=== PATIENT | female | born 1985 | race African-American/Black ===

== ENCOUNTER 2017-05-03 19:39 | Inpatient (IN) | payer BC ==
[2017-05-03 20:17] LABS: BASOPHILS 0.1 % (0-2); EOSINOPHILS 3.1 % (0-7); HEMATOCRIT 26.1 % (36.0-48.0); IMMATURE GRANULOCYTES 0.2 % (0-5); LYMPHOCYTES 26.9 % (15-50); MCHC 28.4 g/dL (31.0-37.0); MCV 60.6 fL (80.0-100.0); MEAN PLATELET VOLUME 8.8 fL (7.4-10.4); MONOCYTES 6.8 % (2-11); NEUTROPHILS 62.9 % (40-80); PLATELET COUNT 365 10x3/uL (130-400); RBC 4.31 10x6/uL (4.00-5.40); RDW 18.9 % (11.5-14.5)
[2017-05-03 20:19] LABS: MCH 17.2 pg (26.0-34.0)
[2017-05-03 20:21] LABS: HEMOGLOBIN 7.4 g/dL (12-16)
[2017-05-03 20:30] LABS: HCG SERUM NEGATIVE (NEGATIVE)
[2017-05-03 21:03] LABS: APTT 22.8 SECONDS (22.8-39.4); INR 1.05 (0.85-1.17); PROTIME 13.5 SECONDS (11.6-15.0)
[2017-05-03 21:23] LABS: ALKALINE PHOSPHATASE 75 U/L (46-116); ALT (SGPT) 29 U/L (10-68); BILIRUBIN - TOTAL 0.19 mg/dL (0.2-1.3); CALC OSMOLALITY 280 mosm/kg (275-300); CALCIUM 8.4 mg/dL (8.5-10.1); CARBON DIOXIDE 22.7 mmol/L (21.0-32.0); CHLORIDE - SERUM 106 mmol/L (98-107); CREATININE - SERUM 0.9 mg/dL (0.6-1.3); GLUCOSE 178 mg/dL (74-106); POTASSIUM - SERUM 4.1 mmol/L (3.5-5.1); PROTEIN - SERUM 7.4 g/dL (6.4-8.2); SODIUM 139 mmol/L (136-145); UREA NITROGEN 10 mg/dL (7-18); eGFR NON AFRICAN AMERICAN 78 mL/min (90-120)
[2017-05-03 23:30] VITALS: BP 124/59
[2017-05-04] VITALS (14 sets, daily range): BP systolic 101–137; BP diastolic 53–70
--- NOTE | 2017-05-04 00:30 | NUR ---
32 y/o non female rcvd from ER via w/c. Pt is being placed in 1273 for overnight observation and PRBC transfusion. Report rcvd from ER staff. Pt voided upon arrival in room. Reports pain only when moving or sitting. States pain is r/t cramping. Ambulated from bathroom to bed. Pt into bed in semi fowlers position. Has first unit PRBCs infusing @ 200ml/ hr to L AC. Saline bag is also hanging on Y blood tubing. Pt has scant vaginal bleeding. Placed yudi pad to pts yudi area. VS obtained. Assessment performed. Pt oriented to room and call system. Bed low. SR upx2. C/L in reach. Has a family friend in room. Dr. London present on unit and orders for pts care to be placed per .
[2017-05-04] MEDS ORDERED: PROVENTIL2 MG PO (00:54)
--- NOTE | 2017-05-04 01:07 | NUR ---
SOCIAL WORK THERAPIST NOTIFIED OF NEED FOR PREMARIN 25MG IV.
--- NOTE | 2017-05-04 01:30 | NUR ---
FIRST UNIT PRBCs COMPLETE. IV FLUSHING WITH NS @ 200ML/HR. PT RESTING.
--- NOTE | 2017-05-04 01:53 | NUR ---
Pt requesting pain medication for cramping. Rating pain 8/10. PRN pain medication administered as ordered. See EMAR.
--- NOTE | 2017-05-04 02:00 | NUR ---
Still awaiting premarin from dry house attendant.
--- NOTE | 2017-05-04 03:05 | NUR ---
IV tubing changed. Blood bag disposed in biohazard bag.
--- NOTE | 2017-05-04 03:07 | NUR ---
PRBC transfusion started @ 40ml/hr. Will remain with pt for next 15 minutes.
--- NOTE | 2017-05-04 03:07 | NUR ---
Second unit PRBCs started. Verified with Analisa Sweeney RN.
--- NOTE | 2017-05-04 03:23 | NUR ---
Pt tolerating transfusion. Rate increased to 150ml/hr.
--- NOTE | 2017-05-04 04:00 | NUR ---
Scant vag bleeding noted with no clots present.
--- NOTE | 2017-05-04 04:15 | NUR ---
Pt resting with eyes closed. C/L in reach. Bed low. SR up x2.
--- NOTE | 2017-05-04 05:40 | NUR ---
Pt request prn pain med. See EMAR for medical technologist chemistry.
--- NOTE | 2017-05-04 05:45 | NUR ---
Second unit PRBCs complete. IV tubing changed to primary straight tubing and IV flushed with NS. IV fluids infusing @ 150mlhr.
--- NOTE | 2017-05-04 06:00 | NUR ---
NS decreased to 125ml/hr.
--- NOTE | 2017-05-04 06:45 | NUR ---
Pt up to bathroom to void. No bleeding noted to yudi pad.
--- NOTE | 2017-05-04 06:52 | NUR ---
IV pump will not infuse. Saying occluded. IV pump turned off.
[2017-05-04 07:11] LABS: BASOPHILS 0.1 % (0-2); EOSINOPHILS 2.6 % (0-7); HEMATOCRIT 28.6 % (36.0-48.0); HEMOGLOBIN 8.6 g/dL (12-16); IMMATURE GRANULOCYTES 0.1 % (0-5); LYMPHOCYTES 17.9 % (15-50); MCHC 30.1 g/dL (31.0-37.0); MEAN PLATELET VOLUME 8.7 fL (7.4-10.4); MONOCYTES 6.2 % (2-11); NEUTROPHILS 73.1 % (40-80); RBC 4.46 10x6/uL (4.00-5.40); RDW 23.1 % (11.5-14.5); WBC 9.6 10x3/uL (4.8-10.8)
--- NOTE | 2017-05-04 07:14 | NUR ---
DR MALCOLM VISITED PT. ANTICIPATE DC HOME. LAB RESULTS PENDING.
[2017-05-04 07:18] LABS: MCH 19.3 pg (26.0-34.0); MCV 64.1 fL (80.0-100.0); PLATELET COUNT 284 10x3/uL (130-400)
[2017-05-04 07:23] LABS: CALC OSMOLALITY 277 mosm/kg (275-300); CALCIUM 8.4 mg/dL (8.5-10.1); CARBON DIOXIDE 24.4 mmol/L (21.0-32.0); CHLORIDE - SERUM 106 mmol/L (98-107); CREATININE - SERUM 0.8 mg/dL (0.6-1.3); GLUCOSE 140 mg/dL (74-106); POTASSIUM - SERUM 3.9 mmol/L (3.5-5.1); SODIUM 139 mmol/L (136-145); UREA NITROGEN 8 mg/dL (7-18); eGFR NON AFRICAN AMERICAN 89 mL/min (90-120)
--- NOTE | 2017-05-04 07:33 | NUR ---
LAYING IN BED SLEEPING, AROUSED FROM SLEEP TO INFORM OF DC PLAN. DROWSY. IV NOTED LEFT ANTECUBITAL, NS SOLUTION NOT INFUSING SECONDARY TO ALARIS PUMP OFF AT THIS TIME. RECEIVED BLOOD TRANSFUSIONS DURING THE NIGHT. ORDERS RECEIVED FOR DC HOME TODAY. REGULAR DIET ORDER. WILL DC HOME AFTER BREAKFAST. SCD'S IN PLACE. SIDE RAILS UP X 2, CALL LIGHT IN REACH. VISITORS X 2 AT BEDSIDE.
--- NOTE | 2017-05-04 08:57 | NUR ---
DC TO CAR VIA WHEELCHAIR AFTER DISCUSSING DC INSTRUCTIONS. VERBAL AND WRITTEN INFORMATION GIVEN ON VAGINAL BLEEDING. DISCUSSED DANGER SIGNS, DVT PREVENTION, IMPORTANCE OF FREQUENT AMBULATION ON TRIP BACK HOME TO [place]. TO MAKE APPOINTMENT WITH PCM WHEN HOME. TO NEAREST ER IF FURTHER EPISODE OF INCREASED VAGINAL BLEEDING. VISITORS X 2 IN ROOM. VERBALIZED UNDERSTANDING.
--- NOTE | 2017-06-03 09:56 | DS ---
PATIENT:ROMERO GAN :89 MEDICAL RECORD: [id number] DISCHARGE SUMMARY ADMISSION DATE: 05/03/17 DISCHARGE DATE: 05/04/17 HOSPITAL COURSE: The patient was admitted on 05/04/2017 from the Emergency Room where she had presented with vaginal bleeding. Per the ER, the bleeding was brisk upon initial examination. I evaluated the patient in the Emergency Room and only slight bleeding was noted from the vagina at that time. PAST MEDICAL HISTORY: The patient had a past medical history significant for; 1. Morbid obesity. 2. Anovulation menorrhagia cycling. The patient reported no other significant past medical history. PAST SURGICAL HISTORY: The patient reported a surgical history significant for dilation and curettage. ALLERGIES: THE PATIENT REPORTED AN ALLERGY TO [facility]. FAMILY HISTORY: Negative. SOCIAL HISTORY: Negative times 3. PHYSICAL EXAMINATION: VITAL SIGNS: On initial examination, vital signs were stable. The patient was afebrile. ABDOMEN: Soft, but obese. No masses palpated. The patient had had an ultrasound in the Emergency Room, which revealed a normal sized uterus with an endometrial stripe of 11 mm. A 2 cm follicles noted on the left ovary. Of note, the patient was also noted to have a hemoglobin of 7.4. ASSESSMENT AND PLAN: At that time, 1. The patient with morbid obesity. 2. Polycystic ovarian syndrome. 3. Anemia. The etiology of the bleeding was discussed in detail with the patient. The patient was on her way home to [place] with stopping in our Emergency Room. The patient reported having been on oral progestin, which had been prescribed by her RELEASE OF INFORMATION SPECIALIST [place]. She reported that her normal hemoglobin was 8 to 9, which is corroborated by her MCV of 60. I discussed medical options to stop the bleeding and surgical options versus D&C versus estrogen therapy. The patient opted for blood transfusion, IV Premarin to stabilize the bleeding and allow her to return back to [place]. The risk of IV estrogen therapy was explained including risk of deep vein thrombosis, pulmonary embolus, myocardial infarction and cerebrovascular accident. The patient was admitted at that time and given IV Premarin. SCDs were on and the patient was receiving IV hydration. The patient was transfused 2 units of packed red cells overnight and on the morning of hospital day #1, the patient with only scant bleeding, status post 1 dose of IV Premarin. No evidence of DVT in the lower extremities. The patient was discharged home, hemoglobin was 8.6. Vital signs were stable. I advised the DISCHARGE SUMMARY REPORT [id number] ROMERO GAN patient to wear loose fitting clothing, to remain well hydrated and to keep the legs moving while on the car ride including doing isometric exercises to prevent deep vein thrombosis. I also advised the patient to immediately contact her normal RELEASE OF INFORMATION SPECIALIST when she returns home. TRANSINT:[id number] Voice Confirmation ID: [id number] DOCUMENT ID: [id number] ALICE MALCOLM MD at [id number] CC: [id number] DICTATION DATE: 06/01/17 1344 CHILD WELFARE CONSULTANT: 06/02/17 0254 DIS IN 05/04/17 [id number] [place] [address]
== END 2017-05-04 08:57 | disposition home or self-care (01) | DRG 812 ==
LOC: D.ER 19:39 → D.LD 23:41
PROVIDERS: Family Medicine; Nurse Practitioner Acute Care; ADMIT Obstetrics & Gynecology
DX: D64.9 Anemia, unspecified (principal); N93.8 Other specified abnormal uterine and vaginal bleeding; N92.0 Excessive and frequent menstruation with regular cycle; E66.01 Morbid (severe) obesity due to excess calories